=== PATIENT | male | born 1990 | race Two or more races ===

== ENCOUNTER 2016-07-17 12:45 | Emergency (ER) | payer OTHER ==
[~2016-07-17] VITALS: Ht 182.9 cm; Wt 74.8 kg
[~2016-07-17 12:45] MED LIST: ACET50TA PO; ADV250INH INH; CLAR10TA13 PO; LEVO500T PO; PRED10TA2 PO; PRED20TA PO; PRED50TA2 PO; SING4GRA PO; VENTAER INH; ZITH250T PO
[2016-07-17] MEDS: IPRATROPIUM 0.5MG/ALBUTEROL 2.5MG INH SOL UD 3ML (DUONEB)(J7620) NEB SCH ×3 (15:11→15:31)
--- NOTE | 2016-07-17 15:23 | REP ---
CHEST X-RAY: Two views. HISTORY: Shortness of breath. . COMPARISON STUDY: October 15, 2013 . FINDINGS: The lungs are well inflated and free of infiltrate. The pleural angles are sharp. The heart size is normal. Pulmonary vasculature is not increased. No significant bony abnormality is seen. IMPRESSION: Negative chest x-ray. Signed by Alireza Grimaldo MD 07/17/2016 04:53 P
[2016-07-17] MEDS ORDERED: ZITHTAB PO (15:57)
[2016-07-17] MEDS ORDERED: PROA1AER INH (15:57)
[2016-07-17 16:13] VITALS: BP 109/73
== END 2016-07-17 16:15 | disposition home or self-care (01) ==
LOC: M ED 15:06
DX: J45.901 Unspecified asthma with (acute) exacerbation (principal); J20.9 Acute bronchitis, unspecified; Z87.891 Personal history of nicotine dependence; Z79.51 Long term (current) use of inhaled steroids

== ENCOUNTER 2016-07-20 08:25 | Inpatient (IN) | payer OTHER ==
[~2016-07-20] VITALS: Ht 182.9 cm; Wt 70.7 kg
[~2016-07-20 08:25] MED LIST changes: +PROA1AER INH; +ZITHTAB PO
[2016-07-20] MEDS ORDERED: MAG SULF 1GM/100ML (MAG RUN) 1 GM in APPROPRIATE DILUENT 1 EA IV ONE ×2 (08:45→10:00)
[2016-07-20] MEDS ORDERED: ALBUTEROL SULFATE 2.5 MG/0.5 ML INH NEB SOLN NEB ONE ×2 (08:45→09:15)
[2016-07-20] MEDS ORDERED: methylPREDNISolone INJ 125 MG/2 ML VIAL (J2930) IV ONE (08:45)
[2016-07-20] MEDS: ADVAIR DISKUS 250/50 INH PWD INH SCH ×2 (09:00→21:49)
[2016-07-20] MEDS ORDERED: NS 1,000 ML IV ONE (09:15)
--- NOTE | 2016-07-20 09:36 | REP ---
Portable chest x-ray: Single view. History: Shortness of breath. Comparison chest x-ray: July 17, 2016. Findings: EKG monitoring electrodes and oxygen delivery tubing are seen overlying the chest. Lungs are well inflated and remain clear. Pleural angles are sharp. Pulmonary vasculature is not increased. No significant bony abnormality is seen. Impression: Negative portable chest x-ray. Signed by Alireza Grimaldo MD 07/20/2016 02:27 P
[2016-07-20] MEDS ORDERED: IPRATROPIUM 0.02% SOLN 0.5MG/2.5 ML NEB NEB ONE (09:45)
[2016-07-20] MEDS ORDERED: LEVALBUTEROL 1.25 MG/0.5 ML CONCENTRATE NEB NEB ONE (09:45)
[2016-07-20 10:20] LABS: BASO # 0.1 K/mm3 (0.0-0.2); BASO % 0.7 % (0.0-1.0); EOS # 0.7 K/mm3 (0.0-0.50); EOS % 7.4 % (0.0-3.0); LARGE UNSTAINED CELL # 0.2 K/mm3 (0.0-0.4); LARGE UNSTAINED CELL % 2.2 % (0.0-4.0); LYMPH # 2.1 K/mm3 (1.5-6.5); LYMPH % 21.1 % (24.0-44.0); MEAN CORPUSCULAR HEMOGLOBIN 30.3 pg (27.0-33.0); MEAN CORPUSCULAR HGB CONC 33.2 g/dl (32.0-36.5); MEAN CORPUSCULAR VOLUME 91.3 fl (80.0-96.0); MONO # 0.6 K/mm3 (0.0-0.8); MONO % 5.6 % (0.0-5.0); NEUTROPHILS # 6.2 K/mm3 (1.8-7.7); NEUTROPHILS % 63.1 % (36.0-66.0); PLATELET COUNT, AUTOMATED 287 k/mm3 (150-450); RED CELL DISTRIBUTION WIDTH 13.1 % (11.5-14.5); WHITE BLOOD COUNT 9.9 K/mm3 (4.0-10.0)
[2016-07-20 10:26] LABS: ANION GAP 8 MEQ/L (8-16); BLOOD UREA NITROGEN 9 MG/DL (7-18); CALCIUM LEVEL 9.3 MG/DL (8.5-10.1); CARBON DIOXIDE LEVEL 25 MEQ/L (21-32); CHLORIDE LEVEL 108 MEQ/L (98-107); CREATININE FOR GFR 0.89 MG/DL (0.70-1.30); GLOMERULAR FILTRATION RATE > 60.0 (>60); GLUCOSE, FASTING 94 MG/DL (70-105); POTASSIUM SERUM 4.1 MEQ/L (3.5-5.1); SODIUM LEVEL 141 MEQ/L (136-145)
[2016-07-20] MEDS ORDERED: ACETAMINOPHEN TAB 650MG DOSE (2X325MG) PO PRN ×2 (10:45→14:00)
[2016-07-20 10:48] LABS: ABG BASE EXCESS -3.2 (-2.0-2.0); ABG HCO3 21.2 MEQ/L (22.0-26.0); ABG PARTIAL PRESSURE CO2 36.3 mmHg (35.0-45.0); ABG PARTIAL PRESSURE O2 65.2 mmHg (75.0-100.0); ABG STANDARD HCO3 21.7 MEQ/L (22.0-26.0); ABG TOTAL CO2 22.3 MEQ/L (22.0-29.0); ABG pH (ARTERIAL) 7.384 UNITS (7.350-7.450)
[2016-07-20] MEDS ORDERED: MONT10TA2 PO (11:08)
[2016-07-20] MEDS ORDERED: ALBU83IN INH (11:08)
[2016-07-20] MEDS ORDERED: ADV250INH INH (11:08)
[2016-07-20] MEDS ORDERED: ALBU17IN INH (11:08)
[2016-07-20] MEDS ORDERED: AZIT250T3 PO (11:09)
[2016-07-20] MEDS ORDERED: TYLE325T5 PO (11:11)
[2016-07-20] MEDS: IPRATROPIUM 0.5MG/ALBUTEROL 2.5MG INH SOL UD 3ML (DUONEB)(J7620) NEB SCH ×2 (13:19→20:20)
--- NOTE | 2016-07-20 14:57 | HPE ---
DATE OF ADMISSION: 07/20/2016 Time patient was seen was this morning at 1030 hours. CHIEF COMPLAINT: Shortness of breath, chest pressure. HISTORY OF PRESENT ILLNESS: 26-year-old male with past medical history of asthma since childhood, seasonal allergies, allergies to cats and dogs, presented with severe trouble breathing and likely asthma attack. Per patient, he was in the hospital 2-3 days ago for the same reason and was diagnosed with bronchitis and was started on azithromycin. Patient reported patient's nephew also had bronchitis about a week ago and he also reports to yellow sputum, however denies any fever or chills. Denies any recent traveling. Patient, however, does not like to see a doctor very often. Last time he saw a doctor was at [facility] in January and he did not followup with them since. He also had multiple asthma attacks in the past and once he was almost intubated and was admitted to the intensive care unit (ICU) setting. Per patient, the last time he was hospitalized was about 3 years ago. Patient also uses rescue inhaler multiple times a day at baseline and for the past few days he has been using rescue inhaler more than ten times a day. Per patient, he also developed chest tightness last night and it continued throughout the night and this morning he could not tolerate the chest tightness and also trouble breathing, therefore he presented to the emergency room and he stated the pain was 7/10, not radiating, at mid sternum, and it was mostly dull. Otherwise, he denies any abdominal pain, any nausea, vomiting, diarrhea, constipation, any problem with urination, or any rash. ALLERGIES: Patient is allergic to cats and dogs and also has seasonal allergies, however no known drug allergy. HOME MEDICATIONS: Including: - Tylenol 650 mg one tablet by mouth every 4 hours as needed - Ventolin two puff inhalation every 4 hours as needed - albuterol sulfate 2.5 mg inhalation every 4 hours as needed - azithromycin 250 mg one tablet by mouth daily - montelukast 10 mg one tablet by mouth nightly - Advair Diskus 250/50 mcg one inhalation twice a day PAST MEDICAL HISTORY: Including asthma and seasonal allergies and also allergic to cats and dogs. SURGICAL HISTORY: Denies. FAMILY HISTORY: Asthma. SOCIAL HISTORY: Admits to drinking. Denies any smoking, quit about 1 month ago, used to smoke one-half pack per day for at least 5 years[address] Works at [employer] [address] and also used to work in the fast food industry. REVIEW OF SYSTEMS: CONSTITUTIONAL: Denies any fever or chills. Denies any recent traveling. Denies any weight changes. Admits to sick contact, nephew had bronchitis a week ago. HEENT: Denies any changes with vision, smell, hearing, or taste. Denies any sore throat, any runny nose. Used to have yellow sputum production. Patient does admit to cough. CARDIOVASCULAR: Admits to shortness of breath and chest tightness at mid sternum, no radiation, started last night, continues. PULMONARY: Admits to history of asthma and regular use of rescue inhaler at baseline. Poor compliance and poor followup with primary. GASTROINTESTINAL (GI): Denies any abdominal pains, nausea, vomiting, diarrhea, or constipation. GENITOURINARY (): Denies any problem with urination. HEMATOLOGY/ONCOLOGY: Denies any easy bruising or any bleeding anywhere. ENDOCRINE: Denies any polydipsia or polyuria or any excessive cold or heat intolerance. PSYCHIATRIC: Denies any depression or anxiety. NEUROLOGIC: Denies any weakness on any side of body. Denies any change of vision, smell, hearing, or taste. MUSCULOSKELETAL: Denies any pain anywhere. DERMATOLOGY: Denies any rash anywhere or any ulcers. PHYSICAL EXAMINATION: VITAL SIGNS: Temperature was 96.9, pulse 108, respirations 24, blood pressure 125/82, oxygen was saturating at 92% on four liters of nasal cannula. GENERAL: Patient is a well-developed, well-nourished male, who was alert, awake, oriented times three, appears to be in very mild distress, laying comfortably in his bed with head elevated at a 45 degree angle. HEENT: Normocephalic, atraumatic. Extraocular motors intact. Mucous moist. NECK: Supple, no neck lymphadenopathy. CARDIOVASCULAR: Tachycardic, S1, S2, no murmurs. LUNGS: Diffuse wheezing bilaterally. ABDOMEN: Positive bowel sounds, soft, nontender, nondistended. No peritoneal signs. No ecchymosis. EXTREMITIES: No edema, clubbing, or cyanosis. SKIN: Warm and dry. NEUROLOGIC: Cranial nerves II-XII intact. No focal neurological deficit. LABORATORY DATA: WBC 9.9, hemoglobin 15.8, hematocrit 47.6, with a platelet count of 287, MCV 91.3. Sodium 141, potassium 4.1, chloride 108, bicarbonate 25, BUN 9, creatinine 0.89, GFR greater than 60, fasting glucose 94, calcium 9.3. ABG shows pH of 7.38, pCO2 36.3, pO2 65.2, oxygen saturation was 92.9% with a base excess of -3.2. Patient had one view chest xray which shows negative portable chest xray. ASSESSMENT AND PLAN: 26-year-old male with past medical history of asthma, seasonal allergies, allergy to dogs and cats, presented with: 1. Acute asthma exacerbation, likely secondary to recent bronchitis. Will continue azithromycin 500 mg by mouth daily. Continue patient on DuoNeb treatment. Continue Solu-Medrol 60 mg intravenous (IV) every 8 hours. Continue on supplemental oxygen and continue to monitor. At this point will hold patient's Advair and once patient is out of acute exacerbation will continue Advair at a higher dose, at home patient is on 250, will continue patient at 500, once patient's acute exacerbation has resolved. 2. History of allergy. Patient did see an clip coater in the past, however he did not followup. I have recommended patient to followup with clip coater afterward due to there is a component of allergy that might have exacerbated the patient's asthma. 3. Deep venous thrombosis (DVT) prophylaxis. Patient is Lovenox 40 mg subcutaneously daily. DISPOSITION: Patient has been admitted for acute asthma exacerbation. Patient was close to intubation in the past and was in the intensive care unit (ICU) setting in the past, therefore warrants close monitoring. Will continue DuoNebs, continue IV steroids. Once patient is out of exacerbation, will continue patient's maintenance at a higher dose. Patient has been discussed with attending doctor, Dr. Renetta Bañuelos. My preceptor for this patient encounter was Dr. Renetta Bañuelos. The preceptor was physically present in the building during the encounter and was fully available. As needed, all aspects of the patient interview, examination, medical decision making process, and medical care plan development were reviewed and approved by the preceptor. The preceptor is aware and concurs with the plan as stated in the body of this note and will attest to such by his cosignature.
[2016-07-20 18:00] VITALS: BP 140/74
[2016-07-20] MEDS: ENOXAPARIN 40 MG/0.4 ML SYRINGE (J1650) SC SCH (18:19)
[2016-07-20] MEDS: AZITHROMYCIN 250 MG TAB PO SCH (18:26)
[2016-07-20] MEDS: methylPREDNISolone INJ 125 MG/2 ML VIAL (J2930) IV SCH (18:26)
[2016-07-20] MEDS: MONTELUKAST 10 MG TAB PO SCH (20:04)
[2016-07-20 22:00] VITALS: BP 130/80
[2016-07-21] MEDS: methylPREDNISolone INJ 125 MG/2 ML VIAL (J2930) IV SCH ×3 (00:37→20:20)
[2016-07-21 01:42] VITALS: O2SAT 97
[2016-07-21] MEDS: IPRATROPIUM 0.5MG/ALBUTEROL 2.5MG INH SOL UD 3ML (DUONEB)(J7620) NEB SCH ×4 (01:48→21:32)
[2016-07-21 06:00] VITALS: BP 110/51
[2016-07-21] MEDS: ADVAIR DISKUS 250/50 INH PWD INH SCH ×2 (06:13→21:32)
[2016-07-21 06:44] LABS: EOS % 0.3 % (0.0-3.0); LARGE UNSTAINED CELL % 0.2 % (0.0-4.0); LYMPH # 0.6 K/mm3 (1.5-6.5); LYMPH % 3.8 % (24.0-44.0); MEAN CORPUSCULAR HEMOGLOBIN 29.8 pg (27.0-33.0); MEAN CORPUSCULAR HGB CONC 32.5 g/dl (32.0-36.5); MEAN CORPUSCULAR VOLUME 91.8 fl (80.0-96.0); MONO # 0.4 K/mm3 (0.0-0.8); MONO % 2.4 % (0.0-5.0); NEUTROPHILS # 14.8 K/mm3 (1.8-7.7); NEUTROPHILS % 93.2 % (36.0-66.0); PLATELET COUNT, AUTOMATED 272 k/mm3 (150-450); RED CELL DISTRIBUTION WIDTH 13.3 % (11.5-14.5); WHITE BLOOD COUNT 15.9 K/mm3 (4.0-10.0)
[2016-07-21 07:54] LABS: ALBUMIN 3.9 GM/DL (3.2-5.2); ALBUMIN/GLOBULIN RATIO 1.18 (1.00-1.93); ALKALINE PHOSPHATASE 77 U/L (45-117); ALT/SGPT 16 U/L (12-78); ANION GAP 11 MEQ/L (8-16); AST/SGOT 14 U/L (15-37); BILIRUBIN,TOTAL 0.3 MG/DL (0.2-1.0); BLOOD UREA NITROGEN 12 MG/DL (7-18); CALCIUM LEVEL 9.3 MG/DL (8.5-10.1); CARBON DIOXIDE LEVEL 23 MEQ/L (21-32); CHLORIDE LEVEL 107 MEQ/L (98-107); CREATININE FOR GFR 0.91 MG/DL (0.70-1.30); GLOMERULAR FILTRATION RATE > 60.0 (>60); GLUCOSE, FASTING 143 MG/DL (70-105); MAGNESIUM LEVEL 2.1 MG/DL (1.8-2.4); POTASSIUM SERUM 4.4 MEQ/L (3.5-5.1); SODIUM LEVEL 141 MEQ/L (136-145); TOTAL PROTEIN 7.2 GM/DL (6.4-8.2)
[2016-07-21] MEDS: ENOXAPARIN 40 MG/0.4 ML SYRINGE (J1650) SC SCH (08:37)
[2016-07-21] MEDS: AZITHROMYCIN 250 MG TAB PO SCH (08:37)
[2016-07-21] MEDS: NICOTINE 7 MG/24 HR TRANSDERMAL TD SCH (08:39)
[2016-07-21] MEDS: IPRATROPIUM 0.5MG/ALBUTEROL 2.5MG INH SOL UD 3ML (DUONEB)(J7620) NEB PRN (09:29)
--- NOTE | 2016-07-21 11:28 | IPNPDOC ---
Subjective Date Seen The patient was seen on 07/21/16. Subjective Chief Complaint/HPI The patient is a 26-year-old male admitted with a reason for visit of Asthma Exacerbation. General: Denies: Chills, Night Sweats Constitutional: Denies: Chills, Fever Eyes: Denies: Pain, Vision change ENT: Denies: Ear Pain, Head Aches Skin: Denies: Lesions, Rash Pulmonary: Reports: Dyspnea, Denies: Cough Cardiovascular: Denies: Chest Pain, Palpitations Gastrointestinal: Denies: Nausea, Vomiting Genitourinary: Denies: Dysuria, Frequency Hematologic: Denies: Bleeding Excessively, Bruising Objective Physical Examination General Exam: Positive: Alert, Cooperative, No Acute Distress ENT Exam: Positive: Atraumatic, Mucous membr. moist/pink Neck Exam: Negative: JVD Chest Exam: Positive: Diminished, Wheezing, Negative: Rales, Rhonchi Heart Exam: Positive: Normal S1, Normal S2, Rate Normal, Tachycardic Telemetry: Positive: Sinus Abdomen Exam: Positive: Soft, Negative: Tenderness Extremity Exam: Negative: Edema, Tenderness Assessment /Plan Plan/VTE VTE Prophylaxis Ordered?: Yes Plan 1. Acute asthma exacerbation Patient states that his respiratory status is much improved today Solu-Medrol was decreased to 40 mg every 12 hours Continue azithromycin Patient requiring 4 L of oxygen via nasal cannula, however he is currently 98% on pulse ox We will down titrate his supplemental oxygen requirement as tolerated Continue nebulizers, Advair We will continue to monitor the patient's respiratory status at this time Deep venous thrombosis (DVT) prophylaxis. Continue Lovenox 40 mg subcutaneously daily. Disposition-anticipate discharge in the next 24-48 hours pending clinical improvement. VS, I&O, [facility], [facility] Vital Signs/I&O Vital Signs Date Time Temp Pulse Resp B/P Pulse Ox O2 Delivery O2 Flow Rate FiO2 07/21/16 09:28 Nasal Cannula 4.0 07/21/16 06:00 97.7 100 18 110/51 98 I&O- Last 24 Hours up to 6 AM 07/21/16 06:00 Intake Total 1780 ml Output Total 600 ml Balance 1180 ml Laboratory Data 24H LABS Laboratory Tests 2 07/20/16 15:18: D-Dimer, Quantitative 366.2 07/21/16 06:11: Blood Urea Nitrogen 12, Creatinine 0.91, Sodium Level 141, Potassium Level 4.4, Chloride Level 107, Carbon Dioxide Level 23, Calcium Level 9.3, Aspartate Amino Transf (AST/SGOT) 14L, Alanine Aminotransferase (ALT/SGPT) 16, Alkaline Phosphatase 77, Total Bilirubin 0.3, Total Protein 7.2, Albumin 3.9, Albumin/ Globulin Ratio 1.18, Anion Gap 11, White Blood Count 15.9H, Red Blood Count 4.62 , Hemoglobin 13.8#L, Hematocrit 42.4, Mean Corpuscular Volume 91.8, Mean Corpuscular Hemoglobin 29.8, Mean Corpuscular Hemoglobin Concent 32.5, Red Cell Distribution Width 13.3, Platelet Count 272, Neutrophils (%) (Auto) 93.2H, Lymphocytes (%) (Auto) 3.8L, Monocytes (%) (Auto) 2.4, Eosinophils (%) (Auto) 0.3, Basophils (%) (Auto) 0.0, Neutrophils # (Auto) 14.8H, Lymphocytes # (Auto) 0.6L, Monocytes # (Auto) 0.4, Eosinophils # (Auto) 0.0, Basophils # (Auto) 0.0, Glomerular Filtration Rate > 60.0, Large Unclassified Cells # 0.0, Large Unclassified Cells % 0.2, Magnesium Level 2.1 CBC/BMP Laboratory Tests 07/21/16 06:11 Calcium Level 9.3, Aspartate Amino Transf (AST/SGOT) 14 L, Alanine Aminotransferase (ALT/SGPT) 16, Alkaline Phosphatase 77, Total Bilirubin 0.3, Total Protein 7.2, Albumin 3.9, Red Blood Count 4.62, Mean Corpuscular Volume 91.8, Mean Corpuscular Hemoglobin 29.8, Mean Corpuscular Hemoglobin Concent 32.5 , Red Cell Distribution Width 13.3, Neutrophils (%) (Auto) 93.2 H, Lymphocytes ( %) (Auto) 3.8 L, Monocytes (%) (Auto) 2.4, Eosinophils (%) (Auto) 0.3, Basophils (%) (Auto) 0.0, Neutrophils # (Auto) 14.8 H, Lymphocytes # (Auto) 0.6 L, Monocytes # (Auto) 0.4, Eosinophils # (Auto) 0.0, Basophils # (Auto) 0.0 AMY CHAIREZ MD Jul 21, 2016 11:27 AMY CHAIREZ MD Jul 21, 2016 11:27
[2016-07-21 14:00] VITALS: BP 124/66
[2016-07-21] MEDS: MONTELUKAST 10 MG TAB PO SCH (20:20)
[2016-07-21 21:33] VITALS: O2SAT 94
[2016-07-21 22:00] VITALS: BP 133/62
[2016-07-22] MEDS: IPRATROPIUM 0.5MG/ALBUTEROL 2.5MG INH SOL UD 3ML (DUONEB)(J7620) NEB SCH ×3 (01:14→15:47)
[2016-07-22 01:15] VITALS: O2SAT 96
[2016-07-22 06:00] VITALS: BP 130/59
[2016-07-22 06:58] LABS: BASO % 0.2 % (0.0-1.0); EOS # 0.2 K/mm3 (0.0-0.50); EOS % 0.9 % (0.0-3.0); LARGE UNSTAINED CELL # 0.1 K/mm3 (0.0-0.4); LARGE UNSTAINED CELL % 0.4 % (0.0-4.0); LYMPH # 0.9 K/mm3 (1.5-6.5); LYMPH % 4.8 % (24.0-44.0); MEAN CORPUSCULAR HEMOGLOBIN 30.6 pg (27.0-33.0); MEAN CORPUSCULAR HGB CONC 32.8 g/dl (32.0-36.5); MEAN CORPUSCULAR VOLUME 93.6 fl (80.0-96.0); MONO % 5.3 % (0.0-5.0); NEUTROPHILS # 15.9 K/mm3 (1.8-7.7); NEUTROPHILS % 88.4 % (36.0-66.0); PLATELET COUNT, AUTOMATED 261 k/mm3 (150-450); RED CELL DISTRIBUTION WIDTH 13.4 % (11.5-14.5); WHITE BLOOD COUNT 17.9 K/mm3 (4.0-10.0)
[2016-07-22 07:25] LABS: ALBUMIN 3.6 GM/DL (3.2-5.2); ALKALINE PHOSPHATASE 65 U/L (45-117); ALT/SGPT 18 U/L (12-78); ANION GAP 9 MEQ/L (8-16); AST/SGOT 11 U/L (15-37); BILIRUBIN,TOTAL 0.2 MG/DL (0.2-1.0); BLOOD UREA NITROGEN 13 MG/DL (7-18); CARBON DIOXIDE LEVEL 24 MEQ/L (21-32); CHLORIDE LEVEL 109 MEQ/L (98-107); CREATININE FOR GFR 0.76 MG/DL (0.70-1.30); GLOMERULAR FILTRATION RATE > 60.0 (>60); GLUCOSE, FASTING 115 MG/DL (70-105); MAGNESIUM LEVEL 2.1 MG/DL (1.8-2.4); POTASSIUM SERUM 4.4 MEQ/L (3.5-5.1); SODIUM LEVEL 142 MEQ/L (136-145); TOTAL PROTEIN 7.2 GM/DL (6.4-8.2)
[2016-07-22] MEDS ORDERED: predniSONE 20 MG TAB PO SCH (09:00)
[2016-07-22] MEDS: NICOTINE 7 MG/24 HR TRANSDERMAL TD SCH (10:05)
[2016-07-22] MEDS: methylPREDNISolone INJ 125 MG/2 ML VIAL (J2930) IV SCH (10:05)
[2016-07-22] MEDS: ENOXAPARIN 40 MG/0.4 ML SYRINGE (J1650) SC SCH (10:06)
[2016-07-22] MEDS: AZITHROMYCIN 250 MG TAB PO SCH (10:07)
[2016-07-22] MEDS: IPRATROPIUM 0.5MG/ALBUTEROL 2.5MG INH SOL UD 3ML (DUONEB)(J7620) NEB PRN (10:40)
[2016-07-22] MEDS: ADVAIR DISKUS 250/50 INH PWD INH SCH (10:40)
--- NOTE | 2016-07-22 11:58 | IPNPDOC ---
Subjective Date Seen The patient was seen on 07/22/16. Subjective Chief Complaint/HPI The patient is a 26-year-old male admitted with a reason for visit of Asthma Exacerbation. General: Denies: Chills, Night Sweats Constitutional: Denies: Chills, Fever Eyes: Denies: Pain, Vision change ENT: Denies: Ear Pain, Head Aches Skin: Denies: Lesions, Rash Pulmonary: Reports: Cough, Dyspnea Cardiovascular: Denies: Chest Pain, Palpitations Gastrointestinal: Denies: Nausea, Vomiting Genitourinary: Denies: Dysuria, Frequency Hematologic: Denies: Bleeding Excessively, Bruising Objective Physical Examination General Exam: Positive: Alert, Cooperative, No Acute Distress ENT Exam: Positive: Atraumatic, Mucous membr. moist/pink Neck Exam: Negative: JVD Chest Exam: Positive: Diminished, Wheezing, Negative: Rales, Rhonchi Heart Exam: Positive: Normal S1, Normal S2, Rate Normal, Tachycardic Telemetry: Positive: Sinus Abdomen Exam: Positive: Soft, Negative: Tenderness Extremity Exam: Negative: Edema, Tenderness Assessment /Plan Plan/VTE VTE Prophylaxis Ordered?: Yes Plan 1. Acute asthma exacerbation Patient states that his respiratory status is much improved today Solu-Medrol transitioned to PO Prednisone 40mg Continue Azithromycin Patient weaned off all supplemental oxygen today Continue nebulizers, Advair Patient is still having some productive cough with congestion today, albeit it is improved We will continue to monitor the patient's respiratory status at this time Deep venous thrombosis (DVT) prophylaxis. Continue Lovenox 40 mg subcutaneously daily. Disposition-anticipate discharge in the next 24 hours pending clinical improvement. VS, I&O, 24H, [facility] Vital Signs/I&O Vital Signs Date Time Temp Pulse Resp B/P Pulse Ox O2 Delivery O2 Flow Rate FiO2 07/22/16 10:17 Room Air 07/22/16 07:11 95 07/22/16 06:00 97.3 80 19 130/59 2.0 I&O- Last 24 Hours up to 6 AM 07/22/16 06:00 Intake Total 1380 ml Output Total 1625 ml Balance -245 ml Laboratory Data 24H LABS Laboratory Tests 2 07/22/16 06:19: Blood Urea Nitrogen 13, Creatinine 0.76, Sodium Level 142, Potassium Level 4.4, Chloride Level 109H, Carbon Dioxide Level 24, Calcium Level 9.0, Aspartate Amino Transf (AST/SGOT) 11L, Alanine Aminotransferase (ALT/SGPT) 18, Alkaline Phosphatase 65, Total Bilirubin 0.2, Total Protein 7.2, Albumin 3.6, Albumin/ Globulin Ratio 1.00, Anion Gap 9, White Blood Count 17.9H, Red Blood Count 4.21L , Hemoglobin 12.9L, Hematocrit 39.4L, Mean Corpuscular Volume 93.6, Mean Corpuscular Hemoglobin 30.6, Mean Corpuscular Hemoglobin Concent 32.8, Red Cell Distribution Width 13.4, Platelet Count 261, Neutrophils (%) (Auto) 88.4H, Lymphocytes (%) (Auto) 4.8L, Monocytes (%) (Auto) 5.3H, Eosinophils (%) (Auto) 0.9, Basophils (%) (Auto) 0.2, Neutrophils # (Auto) 15.9H, Lymphocytes # (Auto) 0.9L, Monocytes # (Auto) 1.0H, Eosinophils # (Auto) 0.2, Basophils # (Auto) 0.0 , Glomerular Filtration Rate > 60.0, Large Unclassified Cells # 0.1, Large Unclassified Cells % 0.4, Magnesium Level 2.1 CBC/BMP Laboratory Tests 07/22/16 06:19 Calcium Level 9.0, Aspartate Amino Transf (AST/SGOT) 11 L, Alanine Aminotransferase (ALT/SGPT) 18, Alkaline Phosphatase 65, Total Bilirubin 0.2, Total Protein 7.2, Albumin 3.6, Red Blood Count 4.21 L, Mean Corpuscular Volume 93.6, Mean Corpuscular Hemoglobin 30.6, Mean Corpuscular Hemoglobin Concent 32.8 , Red Cell Distribution Width 13.4, Neutrophils (%) (Auto) 88.4 H, Lymphocytes ( %) (Auto) 4.8 L, Monocytes (%) (Auto) 5.3 H, Eosinophils (%) (Auto) 0.9, Basophils (%) (Auto) 0.2, Neutrophils # (Auto) 15.9 H, Lymphocytes # (Auto) 0.9 L, Monocytes # (Auto) 1.0 H, Eosinophils # (Auto) 0.2, Basophils # (Auto) 0.0 AMY CHAIREZ MD Jul 22, 2016 11:58
[2016-07-22 14:00] VITALS: BP 139/73
[2016-07-22] MEDS ORDERED: PRED10TA PO (14:05)
[2016-07-22] MEDS ORDERED: AZIT250T3 PO (14:05)
--- NOTE | 2016-07-22 14:52 | DS.PDOC ---
Discharge Summary General Date of Admission Jul 20, 2016 at 10:34 Date of Discharge Discharge Summary PROCEDURES PERFORMED DURING STAY: None. ADMITTING DIAGNOSES: 1. . Asthma exacerbation 2. . 3. . DISCHARGE DIAGNOSES: 1. . Asthma exacerbation 2. . 3. . COMPLICATIONS/CHIEF COMPLAINT: Asthma Exacerbation. HISTORY OF PRESENT ILLNESS: . 26-year-old male with past medical history of asthma since childhood presented to ER with a chief complaint of increasing shortness of breath and cough with productive sputum. The patient states that he was recently seen in the ER 2-3 days ago and was diagnosed with bronchitis and discharged home on azithromycin. However, his symptoms did not improve and he returned to the ER for further evaluation and management. During this time, the patient states that he became increasingly dyspneic on any kind of exertion. He denied any chest pain, palpitations, lightheadedness, dizziness, PND, orthopnea, or any lower extremity swelling. In the ER, the patient was requiring 4 L of oxygen via nasal cannula. Given the patient's failure to improve with outpatient antibiotics and hypoxia, he was admitted to the hospitalist service for asthma exacerbation. During his hospitalization, chest x-ray revealed no acute findings. The patient was started on IV steroids, and azithromycin 500 mg daily. The patient's respiratory symptoms improved markedly. He has been weaned off all supplemental oxygen. In addition, the patient's IV steroids have been transitioned to by mouth. The patient states that he is feeling much better and is ready to go home today. DISCHARGE MEDICATIONS: Please see below. ALLERGIES: Please see below. PHYSICAL EXAMINATION ON DISCHARGE: VITAL SIGNS: Please see below. General Exam: Positive: Alert, Cooperative, No Acute Distress ENT Exam: Positive: Atraumatic, Mucous membr. moist/pink Neck Exam: Negative: JVD Chest Exam: Positive: Diminished, Wheezing, Negative: Rales, Rhonchi Heart Exam: Positive: Normal S1, Normal S2, Rate Normal, Tachycardic Telemetry: Positive: Sinus Abdomen Exam: Positive: Soft, Negative: Tenderness Extremity Exam: Negative: Edema, Tenderness LABORATORY DATA: Please see below. IMAGING: Portable chest x-ray: Single view. History: Shortness of breath. Comparison chest x-ray: July 17, 2016. Findings: EKG monitoring electrodes and oxygen delivery tubing are seen overlying the chest. Lungs are well inflated and remain clear. Pleural angles are sharp. Pulmonary vasculature is not increased. No significant bony abnormality is seen. Impression: Negative portable chest x-ray. PROGNOSIS: Medically stable ACTIVITY: As tolerated. DIET: . As tolerated DISPOSITION: . Home DISCHARGE INSTRUCTIONS: 1. . Follow-up with primary care physician within one week 2. . Remain adherent to her medication regimen prescribed, and return to the ER for any worsening symptoms 3. . DISCHARGE CONDITION: Stable. TIME SPENT ON DISCHARGE: Greater than 30 minutes. Vital Signs/I&Os Vital Signs Date Time Temp Pulse Resp B/P Pulse Ox O2 Delivery O2 Flow Rate FiO2 07/22/16 10:17 Room Air 07/22/16 07:11 95 07/22/16 06:00 97.3 80 19 130/59 2.0 I&O- Last 24 Hours up to 6 AM 07/22/16 06:00 Intake Total 1380 ml Output Total 1625 ml Balance -245 ml Laboratory Data Labs 24H Laboratory Tests 2 07/22/16 06:19: Blood Urea Nitrogen 13, Creatinine 0.76, Sodium Level 142, Potassium Level 4.4, Chloride Level 109H, Carbon Dioxide Level 24, Calcium Level 9.0, Aspartate Amino Transf (AST/SGOT) 11L, Alanine Aminotransferase (ALT/SGPT) 18, Alkaline Phosphatase 65, Total Bilirubin 0.2, Total Protein 7.2, Albumin 3.6, Albumin/ Globulin Ratio 1.00, Anion Gap 9, White Blood Count 17.9H, Red Blood Count 4.21L , Hemoglobin 12.9L, Hematocrit 39.4L, Mean Corpuscular Volume 93.6, Mean Corpuscular Hemoglobin 30.6, Mean Corpuscular Hemoglobin Concent 32.8, Red Cell Distribution Width 13.4, Platelet Count 261, Neutrophils (%) (Auto) 88.4H, Lymphocytes (%) (Auto) 4.8L, Monocytes (%) (Auto) 5.3H, Eosinophils (%) (Auto) 0.9, Basophils (%) (Auto) 0.2, Neutrophils # (Auto) 15.9H, Lymphocytes # (Auto) 0.9L, Monocytes # (Auto) 1.0H, Eosinophils # (Auto) 0.2, Basophils # (Auto) 0.0 , Glomerular Filtration Rate > 60.0, Large Unclassified Cells # 0.1, Large Unclassified Cells % 0.4, Magnesium Level 2.1 CBC/BMP Laboratory Tests 07/22/16 06:19 Calcium Level 9.0, Aspartate Amino Transf (AST/SGOT) 11 L, Alanine Aminotransferase (ALT/SGPT) 18, Alkaline Phosphatase 65, Total Bilirubin 0.2, Total Protein 7.2, Albumin 3.6, Red Blood Count 4.21 L, Mean Corpuscular Volume 93.6, Mean Corpuscular Hemoglobin 30.6, Mean Corpuscular Hemoglobin Concent 32.8 , Red Cell Distribution Width 13.4, Neutrophils (%) (Auto) 88.4 H, Lymphocytes ( %) (Auto) 4.8 L, Monocytes (%) (Auto) 5.3 H, Eosinophils (%) (Auto) 0.9, Basophils (%) (Auto) 0.2, Neutrophils # (Auto) 15.9 H, Lymphocytes # (Auto) 0.9 L, Monocytes # (Auto) 1.0 H, Eosinophils # (Auto) 0.2, Basophils # (Auto) 0.0 Discharge Medications Scheduled Azithromycin (Azithromycin) 250 Mg Tab 500 MG PO DAILY Montelukast Sodium (Montelukast Sodium) 10 Mg Tab 10 MG PO QHS (Reported) Prednisone (Prednisone) 10 Mg Tab 10 MG PO ASDIRECTED Salmeterol/Fluticasone (Advair Diskus 250-50 Mcg/Dose) 14 Puff/Inhaler Aerp 1 PUFF INH BID (Reported) Scheduled PRN Acetaminophen (Tylenol) 325 Mg Tab 650 MG PO Q4H PRN PRN HEADACHE (Reported) Albuterol Sulfate (Ventolin Hfa) 200 Puff/8 Gm Aers 2 PUFF INH Q4H PRN PRN SHORTNESS OF BREATH (Reported) Albuterol Sulfate (Albuterol Sulfate) 2.5 Mg/3 Ml Nebu 2.5 MG INH Q4H PRN PRN SHORTNESS OF BREATH (Reported) Allergies Coded Allergies: No Known Allergies (Verified Allergy, 11/20/02) AMY CHAIREZ MD Jul 22, 2016 14:52
== END 2016-07-22 16:48 | disposition home or self-care (01) | DRG 141 ==
LOC: M ED 08:48 → M ED INP 10:34 → M MS5PR 18:00
PROVIDERS: ADMIT Internal Medicine; ATTEND Internal Medicine
DX: J45.901 Unspecified asthma with (acute) exacerbation (principal); Z79.899 Other long term (current) drug therapy; Z87.891 Personal history of nicotine dependence

== ENCOUNTER 2016-11-16 15:34 | Emergency (ER) | payer OTHER ==
[~2016-11-16] VITALS: Ht 182.9 cm; Wt 69.1 kg
[~2016-11-16 15:34] MED LIST changes: +ALBU17IN INH; +ALBU83IN INH; +AZIT-12 PO; +MONT10TA2 PO; -PROA1AER INH; +PROAAER10 INH; +TYLE325T5 PO
[2016-11-16 15:35] VITALS: BP 137/72
[2016-11-16] MEDS ORDERED: AMOX875T PO (16:08)
[2016-11-16] MEDS ORDERED: NORCOTAB PO (16:08)
[2016-11-16] MEDS ORDERED: LIDOCAINE VISCOUS 2% SOLN 15ML UDC PO ONE (16:15)
== END 2016-11-16 16:17 | disposition home or self-care (01) ==
LOC: M ED 15:34
DX: K04.7 Periapical abscess without sinus (principal); J45.909 Unspecified asthma, uncomplicated; F17.210 Nicotine dependence, cigarettes, uncomplicated

== ENCOUNTER 2019-07-11 07:28 | Emergency (ER) | payer OTHER ==
[~2019-07-11] VITALS: Ht 182.9 cm; Wt 73.3 kg
[~2019-07-11 07:28] MED LIST changes: -ACET50TA PO; +AMOX875T PO; +HYDR-3715 PO; +MAPA500T17 PO; -MONT10TA2 PO; +MONT10TA4 PO
--- NOTE | 2019-07-11 07:59 | REP ---
The right hand fifth digit four views: I suspect soft tissue injury at the nail bed. This should be confirmed clinically. There is no fracture or dislocation. No calcifications or foreign bodies. Impression: Soft tissue injury at the nail bed. No fracture. Electronically Signed by Epifanio Castellon MD 07/11/2019 07:50 A
[2019-07-11 08:16] VITALS: BP 114/76
== END 2019-07-11 08:19 | disposition home or self-care (01) ==
LOC: M ED 07:28
DX: S61.316A Laceration without foreign body of right little finger with damage to nail, initial encounter (principal); W23.0XXA Caught, crushed, jammed, or pinched between moving objects, initial encounter; Y92.89 Other specified places as the place of occurrence of the external cause; Y93.89 Activity, other specified; Y99.9 Unspecified external cause status; F17.200 Nicotine dependence, unspecified, uncomplicated; Z79.899 Other long term (current) drug therapy

== ENCOUNTER 2019-09-26 08:40 | Emergency (ER) | payer OTHER ==
[~2019-09-26] VITALS: Ht 180.3 cm; Wt 71.6 kg
[2019-09-26] MEDS ORDERED: VENTAER (08:47)
--- NOTE | 2019-09-26 09:24 | REP ---
CHEST, TWO VIEWS: There is no evidence of acute infiltrate. No pleural effusion is seen. The heart is normal in size. The mediastinal silhouette is unremarkable. The visualized osseous structures are intact. IMPRESSION: No acute pulmonary disease. Electronically Signed by Epifanio Marie MD 09/26/2019 09:52 A
[2019-09-26 09:28] LABS: BASO % 0.8 % (0.0-1.0); EOS # 0.2 10^3/uL (0.0-0.5); EOS % 3.9 % (0.0-3.0); HEMATOCRIT 46.2 % (42.0-52.0); HEMOGLOBIN 15.4 g/dl (13.5-17.5); LYMPH # 1.3 10^3/uL (1.5-5.0); LYMPH % 25.1 % (24.0-44.0); MEAN CORPUSCULAR HGB CONC 33.3 g/dl (32.0-36.5); MEAN CORPUSCULAR VOLUME 90.1 fl (80.0-96.0); MONO # 0.4 10^3/uL (0.0-0.8); MONO % 8.2 % (0.0-5.0); NEUTROPHILS # 3.2 10^3/uL (1.5-8.5); NEUTROPHILS % 61.6 % (36.0-66.0); PLATELET COUNT, AUTOMATED 289 10^3/uL (150-450); RED BLOOD COUNT 5.13 10^6/uL (4.30-6.10); WHITE BLOOD COUNT 5.1 10^3/uL (4.0-10.0)
[2019-09-26 10:02] LABS: ALBUMIN 4.3 GM/DL (3.2-5.2); ALT/SGPT 25 U/L (12-78); BILIRUBIN,DIRECT 0.2 MG/DL (0.0-0.2); BILIRUBIN,TOTAL 0.8 MG/DL (0.2-1.0); BLOOD UREA NITROGEN 11 MG/DL (7-18); CALCIUM LEVEL 9.3 MG/DL (8.5-10.1); CARBON DIOXIDE LEVEL 25 MEQ/L (21-32); CHLORIDE LEVEL 108 MEQ/L (98-107); CK-MB VALUE MASS < 1.0 NG/ML (<3.6); CPK CREATINE PHOSPHOKINASE 91 U/L (39-308); CREATININE FOR GFR 1.04 MG/DL (0.70-1.30); GLOMERULAR FILTRATION RATE > 60.0 (>60); GLUCOSE, FASTING 98 MG/DL (70-100); SODIUM LEVEL 139 MEQ/L (136-145); TOTAL PROTEIN 7.7 GM/DL (6.4-8.2); TROPONIN I < 0.02 NG/ML (< 0.10)
[2019-09-26] MEDS ORDERED: PRED20TA PO (10:12)
[2019-09-26] MEDS ORDERED: predniSONE 20 MG TAB PO ONE (10:15)
[2019-09-26 10:22] VITALS: BP 127/94
--- NOTE | 2019-09-27 08:22 | ECGEPIP ---
- ED Test Date: 2019-09-26 Pat Name: BUSHRA BABCOCK Department: Room: - Gender: Male Communication Consultant: : 1990 Requested By: Emma Cha Order Number: [id number] Reading MD: Antwan Dubois Measurements Intervals [place] Rate: 96 P: 68 AR: 151 QRS: 77 QRSD: 91 T: 56 QT: 334 QTc: 423 Interpretive Statements SINUS RHYTHM NO PRIORS FOR COMPARISON Electronically Signed on 09-27-2019 8:21:31 EDT by Antwan Dubois
== END 2019-09-26 10:24 | disposition home or self-care (01) ==
LOC: M ED 08:40
DX: J98.01 Acute bronchospasm (principal); F17.218 Nicotine dependence, cigarettes, with other nicotine-induced disorders; J45.909 Unspecified asthma, uncomplicated

== ENCOUNTER 2020-03-19 19:59 | Emergency (ER) | payer OTHER ==
[~2020-03-19] VITALS: Ht 182.9 cm; Wt 86.3 kg
[~2020-03-19 19:59] MED LIST changes: +VENTAER
[2020-03-19] MEDS ORDERED: BOOSTRIX/ADACEL VACCINE (DIPHTH/PERTUSS/ACELL/TETANUS) 0.5ML SYR IM ONE (20:45)
[2020-03-19] MEDS ORDERED: DERMABOND TOPICAL SKIN ADHESIVE TOP ONE (20:45)
[2020-03-19 21:06] VITALS: BP 148/90
== END 2020-03-19 21:08 | disposition home or self-care (01) ==
LOC: M ED 19:59
DX: S91.112A Laceration without foreign body of left great toe without damage to nail, initial encounter (principal); W26.8XXA Contact with other sharp object(s), not elsewhere classified, initial encounter; Y92.9 Unspecified place or not applicable; Y93.9 Activity, unspecified; Y99.9 Unspecified external cause status; J45.909 Unspecified asthma, uncomplicated; Z79.899 Other long term (current) drug therapy

== ENCOUNTER → 2022-07-21 | Outpatient (CLI) | payer OTHER ==
[~2022-07-21] MED LIST changes: +ALBU2.5V10 INH; -ALBU83IN INH; -MONT10TA4 PO; +MONT10TA97 PO
== END ==
LOC: M RAD 13:50
PROVIDERS: ATTEND Pediatrics
DX: R07.89 Other chest pain (principal)

== ENCOUNTER 2023-07-28 11:20 | Emergency (ER) | payer OTHER ==
[~2023-07-28] VITALS: Ht 182.9 cm; Wt 106.6 kg
[2023-07-28] MEDS ORDERED: IBUP-1022 PO (11:26)
[2023-07-28 14:59] VITALS: BP 159/74; TEMP 97.3; O2SAT 96
== END 2023-07-28 15:36 | disposition home or self-care (01) ==
LOC: M ED 11:20
DX: M79.671 Pain in right foot (principal); F90.9 Attention-deficit hyperactivity disorder, unspecified type; J45.909 Unspecified asthma, uncomplicated; F17.200 Nicotine dependence, unspecified, uncomplicated; Z79.52 Long term (current) use of systemic steroids; Z79.1 Long term (current) use of non-steroidal anti-inflammatories (NSAID)

== ENCOUNTER → 2024-01-14 | Outpatient (REF) | payer OTHER ==
[~2024-01-14] MED LIST changes: +IBUP-1022 PO
[2024-01-14 13:52] LABS: ALBUMIN 4.1 G/DL (3.2-5.2); ALKALINE PHOSPHATASE 93 U/L (46-116); ALT/SGPT 46 U/L (7.0-40); AST/SGOT 24 U/L (<34); BILIRUBIN,TOTAL 0.3 MG/DL (0.3-1.2); BLOOD UREA NITROGEN 8 MG/DL (9-23); CALCIUM LEVEL 9.2 MG/DL (8.5-10.1); CARBON DIOXIDE LEVEL 24 MMOL/L (20-31); CHLORIDE LEVEL 109 MMOL/L (98-107); CHOLESTEROL LEVEL 180 MG/DL (<200); CHOLESTEROL RISK RATIO 4.66 (<5); CREATININE FOR GFR 0.86 MG/DL (0.70-1.30); GLOMERULAR FILTRATION RATE > 60.0 (>60); GLUCOSE, FASTING 135 MG/DL (60-100); HDL CHOLESTEROL 38.6 MG/DL (>40); NON-HDL-C 141.4 MG/DL; POTASSIUM SERUM 4.3 MMOL/L (3.5-5.1); SODIUM LEVEL 140 MMOL/L (136-145); TOTAL PROTEIN 7.3 G/DL (5.7-8.2); TRIGLYCERIDES LEVEL 87 MG/DL (<150)
[2024-01-14 13:55] LABS: THYROID STIMULATING HORMONE 0.521 uIU/ML (0.55-4.78)
[2024-01-14 13:56] LABS: TOTAL 25(OH) VITAMIN D 11.6 NG/ML (20.0-100.0)
[2024-01-14 13:58] LABS: HEMOGLOBIN A1c 5.7 % (4.0-6.0)
== END ==
LOC: M LAB REF 13:11
PROVIDERS: ATTEND Physician Assistant
DX: Z11.9 Encounter for screening for infectious and parasitic diseases, unspecified (principal); E66.9 Obesity, unspecified; E55.9 Vitamin D deficiency, unspecified

== ENCOUNTER 2024-04-29 11:49 | Emergency (ER) | payer OTHER ==
[~2024-04-29] VITALS: Ht 182.9 cm; Wt 101.9 kg
[~2024-04-29 11:49] MED LIST changes: +ADVA1AER9 INH
[2024-04-29] MEDS ORDERED: LISI10TA22 (12:11)
[2024-04-29] MEDS ORDERED: VITA200032 (12:11)
[2024-04-29] MEDS ORDERED: DOXY-441 PO (13:04)
[2024-04-29] MEDS: DOXYCYCLINE HYCLATE 100MG TABLET PO ONE (13:16)
[2024-04-29] MEDS: cefTRIAXone 500MG VIAL IM ONE (13:17)
[2024-04-29] MEDS: LIDOCAINE 1% SDV 5ML VIAL DILUENT ONE (13:17)
[2024-04-29 13:36] VITALS: BP 139/88; TEMP 97.5; O2SAT 98
[2024-04-29 13:50] LABS: HEPATITIS B SURFACE ANTIBODY NEGATIVE (POSITIVE)
[2024-04-29 14:02] LABS: HEPATITIS B SURFACE ANTIGEN NEGATIVE (NEGATIVE)
[2024-04-29 14:16] LABS: HIV 1&2 SCREEN NEGATIVE (NEGATIVE)
[2024-04-29 14:24] LABS: HEPATITIS C VIRUS ABY INDEX < 0.02 INDEX (<0.8)
[2024-04-29 14:28] LABS: Trichomonas vaginalis (AMP) NOT DETECTED (NEGATIVE)
[2024-04-29 14:52] LABS: GC DNA AMPLIFICATION POSITIVE (NEGATIVE)
== END 2024-04-29 13:50 | disposition home or self-care (01) ==
LOC: M ED 11:49
DX: Z11.3 Encounter for screening for infections with a predominantly sexual mode of transmission (principal); I10 Essential (primary) hypertension; J45.909 Unspecified asthma, uncomplicated; Z79.52 Long term (current) use of systemic steroids; Z79.811 Long term (current) use of aromatase inhibitors; Z79.899 Other long term (current) drug therapy
CPT/HCPCS: 86706; 86780; 86803; 87340; 87389; 87661; 87810; 87850; 96372; 99283; J0696

== ENCOUNTER → 2024-05-16 | Outpatient (REF) | payer OTHER ==
[~2024-05-16] MED LIST changes: +DOXY-441 PO; +LISI10TA22; +VITA200032
[2024-05-16 13:35] LABS: Trichomonas vaginalis (AMP) NOT DETECTED (NEGATIVE)
[2024-05-16 13:59] LABS: GC DNA AMPLIFICATION NEGATIVE (NEGATIVE)
[2024-05-16 16:56] LABS: HIV 1&2 SCREEN NEGATIVE (NEGATIVE)
[2024-05-16 17:03] LABS: HEPATITIS C VIRUS ABY INDEX < 0.02 INDEX (<0.8)
== END ==
LOC: M LAB REF 12:14
PROVIDERS: ATTEND Physician Assistant
DX: Z11.3 Encounter for screening for infections with a predominantly sexual mode of transmission (principal); A64 Unspecified sexually transmitted disease

== ENCOUNTER → 2024-06-09 | Outpatient (REF) | payer OTHER ==
[2024-06-09 18:27] LABS: BASO % 0.5 % (0.0-1.0); EOS # 0.1 10^3/uL (0.0-0.5); HEMATOCRIT 46.4 % (42.0-52.0); HEMOGLOBIN 15.4 g/dl (13.5-17.5); LYMPH # 2.2 10^3/uL (1.5-5.0); LYMPH % 26.4 % (24.0-44.0); MEAN CORPUSCULAR HEMOGLOBIN 30.4 pg (27.0-33.0); MEAN CORPUSCULAR HGB CONC 33.2 g/dl (32.0-36.5); MEAN CORPUSCULAR VOLUME 91.5 fl (80.0-96.0); MONO # 0.7 10^3/uL (0.0-0.8); MONO % 8.3 % (2.0-8.0); NEUTROPHILS # 5.2 10^3/uL (1.5-8.5); NEUTROPHILS % 63.4 % (36.0-66.0); PLATELET COUNT, AUTOMATED 331 10^3/uL (150-450); RED BLOOD COUNT 5.07 10^6/uL (4.30-6.10); WHITE BLOOD COUNT 8.2 10^3/uL (4.0-10.0)
[2024-06-09 18:50] LABS: FREE T4 1.14 NG/DL (0.89-1.76); PERCENT SATURATION 24.6 % (19.7-50.0)
[2024-06-09 18:51] LABS: FERRITIN 155.2 NG/ML (10.5-307.3); THYROID STIMULATING HORMONE 0.616 uIU/ML (0.55-4.78)
[2024-06-09 18:56] LABS: FOLATE 17.02 NG/ML (>5.4)
== END ==
LOC: M LAB REF 16:15
PROVIDERS: ATTEND Physician Assistant
DX: D64.9 Anemia, unspecified (principal); R20.2 Paresthesia of skin